=== PATIENT | female | born 1980 | race Caucasian/White ===

== ENCOUNTER 2017-02-17 13:58 | Outpatient (CLI) ==
[2016-08-16 10:44] VITALS: BMI 27.8
--- NOTE | 2017-02-17 14:36 | DI ---
EXAM: Right hip two-view HISTORY: Pain COMPARISON: Noner FINDINGS: The bones are normal. The hip joint is normal. No focal soft tissue abnormality. IMPERSSION: Normal examination.
--- NOTE | 2017-02-17 14:36 | DI ---
EXAM: Left hip two-view HISTORY: Pain COMPARISON: None FINDINGS: The bones are normal. The hip joint is normal. No focal soft tissue abnormality. IMPERSSION: Normal examination.
== END 2017-02-17 13:59 | disposition home or self-care (01) ==
LOC: RAD 13:58
PROVIDERS: ATTEND Nurse Practitioner
DX: M25.551 Pain in right hip (principal); M25.552 Pain in left hip

== ENCOUNTER 2018-02-25 21:47 | Emergency (ER) ==
[2018-02-25 22:00] VITALS: BP 119/83; TEMP 98.5; BMI 30.8
--- NOTE | 2018-02-25 22:11 | ED.PDOC ---
General ED Provider: Dr. LESA PLASENCIA Chief Complaint: Wrist Pain/Injury Stated Complaint: Patient states she tripped falling onto concrete while gardening. Now has pain on the left distal forearm and very mild pain on the left shoulder but is able to move it fully. Time Seen by Physician: 22:00 Mode of Arrival: Walk-In Information Source: Patient Exam Limitations: No limitations Primary Care Provider: DANIEL MILAN Nursing and Triage Documentation Reviewed and Agree: Yes Reviewed sepsis parameters & appropriate labs ordered?: No System Inflammatory Response Syndrome: Not Applicable Sepsis Protocol: For patient's 13 years and over: Temp is 96.8 and below OR 101 and greater Pulse >90 BPM Resp >20/minute Acutely Altered Mental Status Are patient's symptoms suggestive of a new infection, such as: -Pneumonia -Skin, Soft Tissue -Endocarditis -UTI -Bone, Joint Infection -Implantable Device -Acute Abdominal Infection -Wound Infection -Meningitis -Blood Stream Catheter Infection -Unknown Musculoskeletal Complaint Exam - Upper Extremity Complaint/Exam Location of Pain: Reports: Left, Shoulder, Forearm, Wrist Mechanism of Injury: Reports: Trauma (Fall) Onset/Duration: Just prior to arrival. Symptoms Are: Still present Timing: Constant Initial Severity: Moderate Current Severity: Moderate Location: Reports: Discrete (distal radius) Character: Reports: Aching, Throbbing Aggravating: Reports: Movement Alleviating: Reports: Rest Non-Orthopedic Risk Factors: Reports: None DVT Risk Factors: Reports: None Septic Arthritis Risk Factors: Reports: None Related Surgical History: Reports: None Upper Extremity Findings: Present: Swelling, Tenderness NV Bundle Intact Distal to Injury: No Compartment Syndrome Risk Factors: Present: Pain. Absent: Paralysis, Pallor, Pulselessness, Paresthesias Upper Extremity Picture: 1 - tenderness with some skin abrassion Differential Diagnoses: Closed Fracure, Strain, Sprain Review of Systems - Review Of Systems Constitutional: Reports: No symptoms Eyes: Reports: No symptoms Ears, Nose, Mouth, Throat: Reports: No symptoms Respiratory: Reports: No symptoms Cardiac: Reports: No symptoms GI: Reports: No symptoms : Reports: No symptoms Musculoskeletal: Reports: Joint pain, Muscle pain Skin: Reports: Bruising (Left distal forearm ) Neurological: Reports: No symptoms Endocrine: Reports: No symptoms Hematologic/Lymphatic: Reports: No symptoms All Other Systems: Reviewed and Negative Past Medical History - Past Medical History Endocrine: Reports: None Cardiovascular: Reports: None Respiratory: Reports: None Hematological: Reports: None Gastrointestinal: Reports: None Genitourinary: Reports: UTI, Kidney stones Neuro/Psych: Reports: None Musculoskeletal: Reports: Arthritis, Back Pain Cancer: Reports: None Last Menstrual Period: PT HAS HAD A HYSTERECTOMY Other Pertinent Past Medical History: RLS DDD , pain contract - Surgical History General Surgical History: Reports: Hysterectomy (hyst 02/23 ) - Family History Family History: Reports: Unknown - Social History Smoking Status: Current every day smoker, Light tobacco smoker Hx Substance Use: No Alcohol Screening: None - Immunizations Tetanus Shot up to Date: No Physical Exam - Physical Exam Appearance: Ill-appearing Ill-appearing: Mild Pain Distress: Moderate Neck: Supple Respiratory: Airway patent, Breath sounds clear, Breath sounds equal, Respirations nonlabored Cardiovascular: RRR, Pulses normal, No rub, No murmur Musculoskeletal: Normal strength, ROM intact Skin: Warm, Dry Neurological: Sensation intact, Alert, Oriented Psychiatric: Affect appropriate, Mood appropriate Interpretation - Radiology Interpretation Radiology Interpretation By: ED Physician Radiology Results: Negative Exam Interpreted: Other (fore arm and wris) Critical Care Note - Critical Care Note Total Time (mins): 0 Course - Course Orders, Labs, Meds: Orders Category Date Time Status Ice [ED APPLY ICE AFFECTED AREA] .ONCE EMERGENCY 02/25/18 22:07 Ordered Ibuprofen [Motrin] MEDS 02/25/18 22:06 Stat 800 mg PO ONCE STA FOREARM, LEFT 2 VIEWS Stat RADS 02/25/18 22:06 Ordered WRIST, LEFT 3 VIEWS Stat RADS 02/25/18 22:05 Ordered Medications Discontinued Medications Generic Name Dose Route Start Last Admin Trade Name Freq PRN Reason Stop Dose Admin Ibuprofen 800 mg 02/25/18 22:06 Motrin PO 02/25/18 22:07 ONCE STA Vital Signs: Temp Pulse Resp BP Pulse Ox 02/25/18 21:48 98.5 F 81 20 119/83 97 Departure - Departure Time of Disposition: 22:31 Disposition: HOME SELF-CARE Discharge Problem: Forearm abrasion, non-infected Left wrist sprain Qualifiers: Encounter type: initial encounter Qualified Code(s): S63.502A - Unspecified sprain of left wrist, initial encounter Sprain of shoulder, left Qualifiers: Encounter type: initial encounter Shoulder sprain type: unspecified sprain Qualified Code(s): S43.402A - Unspecified sprain of left shoulder joint, initial encounter Instructions: Wrist Sprain (ED), Abrasion (ED) Condition: Stable Pt referred to PMD for follow-up: Yes IPMP verified?: No Additional Instructions: Rest, take Medication as prescribed Follow up with PCP in 3 days Prescriptions: Ibuprofen [Motrin] 600 mg PO Q6H PRN #30 tablet PRN Reason: Analgesia Allergies/Adverse Reactions: Allergies No Known Allergies Allergy (Verified 02/25/18 21:56) Home Medications: Ambulatory Orders Gabapentin [Neurontin] 600 mg PO BEDTIME 08/16/16 Hydrocodone Bit/Acetaminophen [[place] 10-325] 1 tab PO BID 08/16/16 Tizanidine HCl [Zanaflex] 4 mg PO PRN tab-cap 03/03/17 Ibuprofen [Motrin] 600 mg PO Q6H PRN #30 tablet 02/25/18 Disposition Discussed With: Patient, Family
[2018-02-25] MEDS: MOTRIN PO STA (22:16)
--- NOTE | 2018-02-25 22:30 | DI ---
Exam: Left wrist three-view History: Fall with injury and pain Findings / impression: No bony or articular abnormality of the left wrist. Negative exam.
--- NOTE | 2018-02-25 22:30 | DI ---
Exam: Leftforearm two views HISTORY: Injury and pain Findings / impression: No bony abnormality is seen. No significant surrounding soft tissue abnormal ity. Negative exam.
[2018-02-25] MEDS: BOOSTRIX IM ONE (22:35)
== END 2018-02-25 22:45 | disposition home or self-care (01) ==
LOC: ED 21:47
DX: S63.502A Unspecified sprain of left wrist, initial encounter (principal); S43.402A Unspecified sprain of left shoulder joint, initial encounter; S50.812A Abrasion of left forearm, initial encounter; W01.0XXA Fall on same level from slipping, tripping and stumbling without subsequent striking against object, initial encounter; F17.210 Nicotine dependence, cigarettes, uncomplicated
CPT/HCPCS: 90471; 90715; 99283

== ENCOUNTER 2018-06-21 11:15 | Outpatient (CLI) | END 2018-06-21 11:16 | disposition home or self-care (01) | LOC: LAB 11:15 | PROVIDERS: ATTEND Pain Medicine Interventional Pain Medicine | DX: R53.83 Other fatigue (principal); M79.10 Myalgia, unspecified site; M60.9 Myositis, unspecified; R51 Headache; M51.26 Other intervertebral disc displacement, lumbar region; M47.817 Spondylosis without myelopathy or radiculopathy, lumbosacral region; M47.812 Spondylosis without myelopathy or radiculopathy, cervical region; M50.323 Other cervical disc degeneration at C6-C7 level; M50.322 Other cervical disc degeneration at C5-C6 level; M50.222 Other cervical disc displacement at C5-C6 level; M47.813 Spondylosis without myelopathy or radiculopathy, cervicothoracic region; M47.816 Spondylosis without myelopathy or radiculopathy, lumbar region; M48.061 Spinal stenosis, lumbar region without neurogenic claudication; F33.1 Major depressive disorder, recurrent, moderate; F41.1 Generalized anxiety disorder; E66.3 Overweight; Z68.28 Body mass index [BMI] 28.0-28.9, adult | CPT/HCPCS: 36415; 84550; 85651; 86038; 86140; 86430 ==

== ENCOUNTER 2019-01-29 14:19 | Outpatient (CLI) ==
--- NOTE | 2019-01-29 15:45 | MRI ---
Examination: MRI lumbar spine without contrast 01/29/2019 Clinical information: Low back pain, lumbar spinal stenosis. Comparison: 08/11/2015. TECHNIQUE: Sagittal and axial T1 and T2W imaging, sagittal STIR and coronal T2W sequences were perfo rmed. FINDINGS: The conus medullaris is normal in signal, location and morphology terminating at the L1 ve rtebral body level. The lumbar vertebral bodies are normal in height and AP alignment. There is a T 12 vertebral body hemangioma. There is moderate loss of disc height at L4-L5 with disc desiccation. Mild loss of disc height at T12-L1 and L1-L2 with minor disc desiccation. There is no lumbar verteb ral body compression fracture or abnormal marrow edema. At the L1-L2 level, there is a minimal disc bulge eccentric left. At the L2-L3 level, there is a minimal disc bulge. At the L3-L4 level, there is a minimal physiologic disc bulge. At the L4-L5 level, there is a minimal disc bulge. There is a small broad-based central disc protrus ion with an associated T2 hyperintense posterior annular fissure. No significant central spinal monika l stenosis. There is mild right neural foraminal stenosis. At the L5-S1 level, there is a minimal disc bulge eccentric left. There is mild bilateral facet hype rtrophy. No central spinal canal stenosis. There is mild left neural foraminal stenosis. Overall, no significant interval change when compared to 08/11/2015. Impression: 1. Small L4-L5 central disc protrusion with a T2 hyperintense posterior annular fissure. No signifi cant central spinal canal stenosis. 2. Mild right L4-L5 and mild left L5-S1 foraminal stenosis.
== END 2019-01-29 14:20 | disposition home or self-care (01) ==
LOC: RAD 14:19
PROVIDERS: ATTEND Pain Medicine Interventional Pain Medicine
DX: M48.061 Spinal stenosis, lumbar region without neurogenic claudication (principal); M54.16 Radiculopathy, lumbar region; M54.17 Radiculopathy, lumbosacral region; M47.816 Spondylosis without myelopathy or radiculopathy, lumbar region; M47.817 Spondylosis without myelopathy or radiculopathy, lumbosacral region

== ENCOUNTER 2019-02-27 13:58 | Outpatient (CLI) | END 2019-02-27 13:59 | disposition home or self-care (01) | LOC: RHC-LAB 13:58 → FCC-LAB 13:59 | PROVIDERS: ATTEND Family Medicine | DX: R60.9 Edema, unspecified (principal); G62.9 Polyneuropathy, unspecified; M25.50 Pain in unspecified joint | CPT/HCPCS: 36415; 80053; 82607; 84439; 84443; 85025; 85651; 86038; 86140; 86430 ==

== ENCOUNTER 2019-03-05 12:25 | Outpatient (CLI) ==
--- NOTE | 2019-03-05 16:36 | US ---
EXAM: Thyroid ultrasound HISTORY: Other specified disorders of thyroid COMPARISON: None TECHNIQUE: Thyroid ultrasound was performed FINDINGS: Right thyroid measures 1.7 x 2.5 x 6.7 cm. Left thyroid measures 1.9 x 1.8 x 5.7 cm. Thy roid isthmus measures 0.4 cm. Thyroid diffusely heterogeneous in echogenicity. Thyroid mildly incre ased in vascularity. Isoechoic nodule right superior thyroid measuring 0.8 x 0.5 x 0.6 cm. Heteroge neous region left mid thyroid measuring 2.4 x 1.1 x 1.7 cm may represent a pseudo nodule secondary to heterogeneous thyroid versus a nodule. IMPRESSION: 1. Diffusely heterogeneous and mildly hypervascular thyroid. Recommend correlation with thyroid fun ction tests. 2. 2.4 cm nodule versus pseudo nodule left mid thyroid. This meets size criteria for fine needle as piration, though may reflect a pseudo nodule secondary to heterogeneous thyroid parenchyma. Recommen d fine-needle aspiration versus sonographic follow-up in 6 months. 3. Additional sub centimeter right thyroid nodule. Recommend sonographic follow-up.
== END 2019-03-05 12:26 | disposition home or self-care (01) ==
LOC: RAD 12:25
PROVIDERS: ATTEND Family Medicine
DX: E07.89 Other specified disorders of thyroid (principal)